=== PATIENT | female | born 1960 | race Caucasian/White ===

== ENCOUNTER → 2016-12-09 | Outpatient (CLI) | payer OTHER ==
[~2016-12-09] MED LIST: ANAS1TAB19 PO; ESCI1TAB6 PO; GADAVIST IV PRN; HEPARIN SOD 5000 UNIT/0.5 ML CARP ONE
--- NOTE | 2016-12-10 13:19 | MAMMOGRAPHY REPORT ---
BREAST MRI OF BOTH BREASTS : 12/09/2016 CLINICAL HISTORY: 56-year-old woman with a history of left breast cancer with recurrence in 2011. S he is status post bilateral mastectomy and silicone implant reconstruction. She recently presented with pain in the left upper outer quadrant for which a targeted ultrasound was performed on 11/29/19. Based on the outside ultrasound report, there was an area of possible scarring in the upper outer qu adrant, at the site of pain and palpable abnormality, for which MRI was recommended. COMPARISON: Comparison is made to exams dated: 03/30/2015 breast MRI and 04/16/2016 breast MRI - [facility]. TECHNIQUE: Using a 1.5 Aneta magnet and dedicated breast coil, multisequence axial images were obtai veena through the breasts. After uneventful IV administration of 5.8 mL of Gadavist, dynamic multipha se contrast-enhanced axial images, and sagittal postcontrast were obtained. Temporal subtraction ax ial images and 3-D MIP images are provided. Additional axial T2 STIR, axial T2 fat saturation, sagi ttal T2 STIR and sagittal T2 fat saturation images were obtained to evaluate implant integrity. FINDINGS: Right breast: There is evidence of prior right mastectomy with subpectoral silicone implant reconst ruction. The implant is intact. There is no significant background enhancement. No suspicious enh ancing, non-mass enhancement or focal skin thickening is identified. No suspicious right axillary, subpectoral or internal mammary lymphadenopathy. Left breast: There is evidence of prior left mastectomy with subpectoral silicone implant reconstruc tion. The implant is intact. There is no significant background enhancement. A palpable marker was placed on the skin of the upper outer posterior left breast, denoting the area of concern pointed o ut by the patient. No suspicious enhancing, non-mass enhancement or focal skin thickening is identif ied, with particular attention to the palpable area. No definite MRI abnormality is seen to correlat e with the sonographic finding of possible scar tissue. There are more foci of susceptibility artifa ct concentrated in the left upper outer quadrant as that is the area of second resection, performed in 2011. No suspicious right axillary, subpectoral or internal mammary lymphadenopathy. A small focus of enhancement is again seen in the sternum (Sagittal vibrant image 63/128). Given sli ght differences in measuring technique this does not appear significantly increased since the prior exam, currently 3.9 mm and previously 3.7 mm. However, continued attention at follow up is still rec ommended, as the prior exam was only 8 months ago. IMPRESSION: ACR BI-RADS CATEGORY 2: BENIGN 1. No new suspicious enhancing mass, non-mass enhancement or other suspicious abnormality in the up per outer quadrant of the left breast, to correlate with area of palpable concern pointed out by the patient. Clinical follow-up is recommended, as biopsy of a clinically suspicious mass should not b e precluded by negative imaging. 2. Stable MRI appearance of bilateral mastectomy with subpectoral silicone implant reconstruction. Both implants remain intact. Overall, there is no MRI evidence of malignancy bilaterally. 3. A tiny 3.9 mm focus of enhancement within the midsternum is again identified and does not appear significantly changed comparing to the prior exam dated 04/16/2016; also likely unchanged dating ba ck to 03/30/2015. Again, although this could represent a tiny metastatic focus, it may be incidenta l. Continued correlation with clinical symptoms and continued attention at follow-up is recommended . The patient will receive written notification of the results. Deirdre Crystal M.D. ay/:12/09/2016 22:14:11 Business Office Associate: assessment rn, [facility] letter sent: Normal 1/2 BI-RADS Code: ACR BI-RADS Category 2: Benign
== END | disposition home or self-care (01) ==
LOC: C.MRI 11:31
PROVIDERS: ATTEND Radiology Diagnostic Radiology
DX: C50.912 Malignant neoplasm of unspecified site of left female breast (principal); Z90.11 Acquired absence of right breast and nipple; Z90.12 Acquired absence of left breast and nipple; Z98.82 Breast implant status; R92.8 Other abnormal and inconclusive findings on diagnostic imaging of breast

== ENCOUNTER 2022-08-02 00:27 | Inpatient (IN) ==
[2022-08-02] MEDS ORDERED: ONDANSETRON INJ 2 MG/ML 2 ML VIAL IV STA ×2 (00:54→08:24)
[2022-08-02] MEDS ORDERED: SODIUM CHLORIDE 0.9% 1000ML 1,000 ML IV SCH ×2 (01:00→06:15)
[2022-08-02] MEDS: MoRPHine SULFATE 4 MG/ML 1 ML CARP\\VIAL IV PRN ×2 (01:02→05:45)
[2022-08-02 01:05] LABS: Basophils # (auto) 0.08 K/uL (0-0.2); Eosinophils # (auto) 0.13 K/uL (0-0.50); Eosinophils % (auto) 1.6 %; Hematocrit (blood only) 41.8 % (34.1-44.9); Hemoglobin 14.7 g/dl (12.0-16.0); Immature Granulocytes # (auto) 0.07 K/uL (0.00-0.02); Immature Granulocytes % (auto) 0.9 %; Lymphocytes # (auto) 2.74 K/uL (1.2-3.4); Lymphocytes % (auto) 34.7 %; Mean Corpuscular Hemoglobin 38.4 pg (25.0-34.0); Mean Corpuscular Hgb Conc 35.2 g/dL (32.0-36.0); Mean Corpuscular Volume 109.1 fL (80.0-100.0); Mean Platelet Volume 9.4 fL (9.4-12.3); Monocytes # (auto) 0.85 K/uL (0.24-0.82); Monocytes % (auto) 10.8 %; Neutrophils # (auto) 4.03 K/uL (1.4-6.5); Platelet Count 275 K/uL (130-400); RDW Coefficient of Variation 13.3 % (11.5-14.5); Red Blood Count 3.83 M/uL (3.93-5.22)
[2022-08-02 01:42] LABS: Albumin Globulin Ratio 1.5 (0.9-2); Albumin Level 4.7 gm/dl (3.4-5.0); BUN Creatinine Ratio 9.7 (10-20); Bilirubin,Total 0.7 mg/dl (0.2-1.0); Calcium 9.6 mg/dl (8.5-10.1); Creatinine Clr Calc Pharmacy 79.8 ml/min; Est GFR (African American) 105.5 ml/min; Globulin 3.2 gm/dl (2.5-4.0); Potassium 4.6 mmol/L (3.5-5.1); Total Protein 7.9 gm/dl (6.0-8.3)
[2022-08-02] MEDS ORDERED: OPTIRAY 320 500ml IV ONE (02:28)
[2022-08-02 02:40] LABS: Appearance Urine Cloudy (Clear); Bacteria Urine Automated 4+ (Negative); Bilirubin Urine Negative (Negative); Blood Urine Trace (Negative); Cast Urine Automated 0 /lpf (0-5); Color Urine Yellow; Glucose Urine UA Negative (Negative); Ketones Urine Negative (Negative); Leukocyte Esterase Urine 3+ (Negative); Nitrite Urine Positive (Negative); Protein Urine Trace (Negative); Urobilinogen Urine Negative (Negative); WBC Urine Automated >30 /hpf (0-5)
[2022-08-02] MEDS ORDERED: SULFAMETHOXAZOLE/TRIMETHOPRIM DS 800/160MG TAB PO ONE (06:06)
[2022-08-02] MEDS ORDERED: cefTRIAXone SODIUM 1,000 MG in DEXTROSE 5% AD-VAN 50 ML IV STA (06:24)
[2022-08-02] MEDS ORDERED: ACETAMINOPHEN 1,000 MG/100 ML VIAL IV STA (06:26)
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
[2022-08-02] MEDS ORDERED: MULTI-VITAMIN INFUSION 10 ML, THIAMINE HCL 100 MG, FOLIC ACID 1 MG in SODIUM CHLORIDE 0... IV ONE (08:15)
[2022-08-02] MEDS ORDERED: LORazepam 1 MG TAB PO STA (08:15)
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
[2022-08-02] MEDS: LIDOCAINE 5% 1 PATCH TD SCH (09:12)
[2022-08-02] MEDS ORDERED: GABAPENTIN 1200MG ALCOHOL WITHDRAWAL LOAD PO STA (09:31)
[2022-08-02] MEDS ORDERED: ONDANSETRON INJ 2 MG/ML 2 ML VIAL IV PRN (09:31)
[2022-08-02] MEDS ORDERED: oxyCODONE HCL IR 5 MG TAB (IMMEDIATE RELEASE) PO PRN (09:31)
[2022-08-02] MEDS ORDERED: HYDROmorphone INJ 0.5 MG/0.5 ML SYR IV PRN (09:31)
[2022-08-02] MEDS ORDERED: LORazepam 1 MG TAB PO PRN ×2 (09:40→19:29)
[2022-08-02] MEDS ORDERED: LEVOTHYROXINE SODIUM 25 MCG TABLET PO SCH (09:45)
[2022-08-02] MEDS ORDERED: GABAPENTIN 600 MG TAB PO ONE (09:45)
[2022-08-02] MEDS: PANTOprazole 40 MG TAB PO SCH (10:59)
[2022-08-02] MEDS: MAGNESIUM SULFATE / D5W 1 GM/100 ML BAG IV SCH ×2 (10:59→12:43)
[2022-08-02] MEDS: SODIUM CHLORIDE 0.9% 1000ML 1,000 ML IV SCH ×2 (10:59→21:12)
[2022-08-02 14:28] LABS: Amphetamines+Metham, Urine Neg (Neg); Barbiturates, Urine Neg (Neg); Benzodiazepine, Urine Neg (Neg); Cocaine, Urine Neg (Neg); MDMA (Ecstacy), Urine Neg (Neg); Methadone, Urine Neg (Neg); Opiate, Urine Pos (Neg); Phencyclidine, Urine Neg (Neg)
[2022-08-02] MEDS: GABAPENTIN 600 MG TAB PO SCH ×2 (15:26→20:06)
[2022-08-02] MEDS: CHOLECALCIFEROL 1,000 UNITS 25 MCG TAB PO SCH (20:07)
[2022-08-02] MEDS: ESCITALOPRAM OXALATE 10 MG TAB PO SCH (20:07)
[2022-08-02] MEDS: OLMESARTAN MEDOXOMIL 20 MG TAB PO SCH (20:07)
[2022-08-02] MEDS: THIAMINE HCL 200 MG in SODIUM CHLORIDE 0.9% 50 ML IV SCH (20:08)
[2022-08-02] MEDS: MELATONIN 3 MG TAB PO SCH (20:08)
[2022-08-02] MEDS ORDERED: THIAMINE HCL 200 MG in SYRINGE 9 ML IV SCH (21:00)
[2022-08-03] MEDS: GABAPENTIN 600 MG TAB PO SCH ×3 (05:12→20:03)
[2022-08-03] MEDS: LEVOTHYROXINE SODIUM 50 MCG TABLET PO SCH (05:13)
[2022-08-03 06:41] LABS: Basophils # (auto) 0.04 K/uL (0-0.2); Basophils % (auto) 0.8 %; Eosinophils # (auto) 0.06 K/uL (0-0.50); Eosinophils % (auto) 1.2 %; Hematocrit (blood only) 35.2 % (34.1-44.9); Immature Granulocytes # (auto) 0.02 K/uL (0.00-0.02); Immature Granulocytes % (auto) 0.4 %; Lymphocytes # (auto) 1.22 K/uL (1.2-3.4); Lymphocytes % (auto) 23.8 %; Mean Corpuscular Hgb Conc 34.1 g/dL (32.0-36.0); Mean Corpuscular Volume 111.4 fL (80.0-100.0); Mean Platelet Volume 9.8 fL (9.4-12.3); Monocytes % (auto) 9.8 %; Neutrophils # (auto) 3.28 K/uL (1.4-6.5); Platelet Count 197 K/uL (130-400); RDW Coefficient of Variation 13.2 % (11.5-14.5); RDW Standard Deviation 54.9 fL (36.4-46.3); Red Blood Count 3.16 M/uL (3.93-5.22); White Blood Count 5.12 K/ul (4.8-10.8)
[2022-08-03 07:10] LABS: Albumin Globulin Ratio 1.5 (0.9-2); Albumin Level 3.7 gm/dl (3.4-5.0); BUN Creatinine Ratio 5.5 (10-20); Bilirubin,Total 0.9 mg/dl (0.2-1.0); Calcium 7.8 mg/dl (8.5-10.1); Est GFR (African American) 103.8 ml/min; Est GFR (Non-African American) 89.5 ml/min; Globulin 2.4 gm/dl (2.5-4.0); Macrocytosis Present; Magnesium 1.8 mg/dl (1.7-2.4); Potassium 3.9 mmol/L (3.5-5.1); Total Protein 6.1 gm/dl (6.0-8.3)
[2022-08-03 07:28] LABS: Vitamin D, 25 Hydrox 52.5 ng/ml (30-100)
[2022-08-03] MEDS: ceFAZolin 1000MG 1,000 MG/7.5 ML SYR IV SCH ×2 (08:34→20:08)
[2022-08-03] MEDS: FOLIC ACID 1 MG TAB PO SCH (08:35)
[2022-08-03] MEDS: LIDOCAINE 5% 1 PATCH TD SCH (08:35)
[2022-08-03] MEDS: PANTOprazole 40 MG TAB PO SCH (08:36)
[2022-08-03] MEDS: SODIUM CHLORIDE 0.9% 1000ML 1,000 ML IV SCH ×2 (08:39→17:49)
[2022-08-03] MEDS: THIAMINE HCL 200 MG in SODIUM CHLORIDE 0.9% 50 ML IV SCH ×2 (08:40→20:08)
--- NOTE | 2022-08-03 09:59 | Orthopedic Progress Note ---
Date of Service August 03, 2022 Assessment & Plan (1) Lumbar burst fracture: Plan: At this time she is able to continue to activity as tolerated to wear the brace when out of bed. To lift no more than a cup of coffee. We will plan for her to undergo a bone health evaluation with our nurse practitioner when she undergoes follow-up. Admission and Anticipated Discharge Date Admission Date: August 02, 2022 Subjective Back pain well controlled denies any leg pain. She is tolerating the brace. Physical Exam Physical Exam: On exam she does appear comfortable. Is good strength testing lower extremities. Results & Data ([facility]) Vital Signs (Past 12 Hours) Vital Signs Temp Pulse Pulse Resp BP Pulse Ox Pulse Ox 08/03/22 09:31 95 08/03/22 07:29 108 H 08/03/22 07:13 37.6 C H 110 H 18 162/97 H 91 08/03/22 02:39 37.1 C 118 H 18 138/94 96 08/02/22 23:18 117 H 08/02/22 23:04 36.9 C 119 H 20 149/92 H 94 O2 Del Method O2 Del Method 08/03/22 09:31 Room Air 08/03/22 07:29 08/03/22 07:13 Room Air 08/03/22 02:39 Room Air 08/02/22 23:18 08/02/22 23:04 Room Air
[2022-08-03] MEDS ORDERED: LORazepam 1 MG TAB PO PRN ×3 (11:08)
[2022-08-03] MEDS ORDERED: Ativan PO Alcohol Withdrawal--Active Protocol PO PRN (11:08)
[2022-08-03] MEDS: ACETAMINOPHEN 500 MG TAB PO PRN (12:00)
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
[2022-08-03] MEDS: METOPROLOL TARTRATE 25 MG TAB PO SCH ×2 (14:30→20:04)
[2022-08-03] MEDS: MELATONIN 3 MG TAB PO SCH (20:04)
[2022-08-03] MEDS: CHOLECALCIFEROL 1,000 UNITS 25 MCG TAB PO SCH (20:04)
[2022-08-03] MEDS: ESCITALOPRAM OXALATE 10 MG TAB PO SCH (20:04)
[2022-08-03] MEDS: OLMESARTAN MEDOXOMIL 20 MG TAB PO SCH (20:04)
[2022-08-03] MEDS ORDERED: hydrOXYzine HCl 25 MG TAB PO STA (22:44)
[2022-08-04] MEDS: ACETAMINOPHEN 500 MG TAB PO PRN ×4 (01:35→21:11)
[2022-08-04] MEDS: SODIUM CHLORIDE 0.9% 1000ML 1,000 ML IV SCH ×2 (04:46→13:19)
[2022-08-04] MEDS: LEVOTHYROXINE SODIUM 50 MCG TABLET PO SCH (05:48)
[2022-08-04 08:11] LABS: BUN Creatinine Ratio 7.7 (10-20); Calcium 7.8 mg/dl (8.5-10.1); Creatinine Clr Calc Pharmacy 90.8 ml/min; Est GFR (African American) 111.8 ml/min; Est GFR (Non-African American) 96.5 ml/min; Potassium 3.4 mmol/L (3.5-5.1)
[2022-08-04] MEDS: METOPROLOL TARTRATE 25 MG TAB PO SCH (08:37)
[2022-08-04] MEDS: LIDOCAINE 5% 1 PATCH TD SCH (08:37)
[2022-08-04] MEDS: GABAPENTIN 600 MG TAB PO SCH ×2 (08:37→20:23)
[2022-08-04] MEDS: FOLIC ACID 1 MG TAB PO SCH (08:37)
[2022-08-04] MEDS: CYANOCOBALAMIN (B-12) 500 MCG TABLET PO SCH (08:37)
[2022-08-04] MEDS: PANTOprazole 40 MG TAB PO SCH (08:37)
[2022-08-04] MEDS: ceFAZolin 1000MG 1,000 MG/7.5 ML SYR IV SCH (08:41)
[2022-08-04] MEDS: THIAMINE HCL 200 MG in SODIUM CHLORIDE 0.9% 50 ML IV SCH ×2 (08:41→20:24)
[2022-08-04] MEDS: cefTRIAXone SODIUM 2,000 MG in DEXTROSE 5% 50 ML IV SCH (09:33)
[2022-08-04] MEDS: POTASSIUM CHLORIDE CRTAB 20 MEQ TABCR PO SCH ×3 (09:34→20:26)
[2022-08-04 13:58] LABS: Codeine Urine NEGATIVE ng/mL (<50); Hydrocodone Urine NEGATIVE ng/mL (<50); Hydromor Urine NEGATIVE ng/mL (<50); Morphine Urine 2280 ng/mL (<50); Norhydrocodone Conf Ur NEGATIVE ng/mL (<50); Noroxycodone Urine NEGATIVE ng/mL (<50); Oxycodone Urine NEGATIVE ng/mL (<50); Oxymorph Urine NEGATIVE ng/mL (<50)
[2022-08-04] MEDS: CHOLECALCIFEROL 1,000 UNITS 25 MCG TAB PO SCH (20:23)
[2022-08-04] MEDS: MELATONIN 3 MG TAB PO SCH (20:23)
[2022-08-04] MEDS: ESCITALOPRAM OXALATE 10 MG TAB PO SCH (20:23)
[2022-08-04] MEDS: OLMESARTAN MEDOXOMIL 20 MG TAB PO SCH (20:24)
[2022-08-04] MEDS: METOPROLOL TARTRATE 50 MG TAB PO SCH (20:24)
[2022-08-04] MEDS ORDERED: LORazepam 0.5 MG TAB PO SCH (21:00)
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
[2022-08-05] MEDS: ACETAMINOPHEN 500 MG TAB PO PRN ×2 (03:11→10:39)
[2022-08-05] MEDS: LEVOTHYROXINE SODIUM 50 MCG TABLET PO SCH (05:48)
[2022-08-05] MEDS: FOLIC ACID 1 MG TAB PO SCH (08:22)
[2022-08-05] MEDS: METOPROLOL TARTRATE 50 MG TAB PO SCH (08:22)
[2022-08-05] MEDS: LIDOCAINE 5% 1 PATCH TD SCH (08:23)
[2022-08-05] MEDS: CYANOCOBALAMIN (B-12) 500 MCG TABLET PO SCH (08:23)
[2022-08-05] MEDS: PANTOprazole 40 MG TAB PO SCH (08:23)
[2022-08-05] MEDS: THIAMINE HCL 200 MG in SODIUM CHLORIDE 0.9% 50 ML IV SCH (08:27)
[2022-08-05] MEDS: POTASSIUM CHLORIDE CRTAB 20 MEQ TABCR PO SCH (08:28)
[2022-08-05] MEDS: cefTRIAXone SODIUM 2,000 MG in DEXTROSE 5% 50 ML IV SCH (08:46)
[2022-08-05 09:14] LABS: BUN Creatinine Ratio 5.7 (10-20); Calcium 8.5 mg/dl (8.5-10.1); Creatinine Clr Calc Pharmacy 84.4 ml/min; Est GFR (African American) 109.1 ml/min; Est GFR (Non-African American) 94.2 ml/min; Potassium 3.9 mmol/L (3.5-5.1)
--- NOTE | 2022-08-05 15:11 | XCELERA ---
[id number]
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
[2022-08-05] MEDS ORDERED: GABAPENTIN 600 MG TAB PO SCH (20:30)
--- NOTE | 2022-08-10 18:21 | Communication Note ---
Date of Service: August 10, 2022 I spoke with Ms Mckinney by phone earlier this afternoon. She reported she was feeling good, remains abstinent from alcohol, and completed her course of IV rocephin for her UTI. She mentioned she has some lingering urinary urgency from the recent UTI, but again states she "really is doing well." During this phone conversation I reported to her that her CT chest report showed a subtle right anterior 5th rib fracture. I explained that the initial STAT rad report from the CT chest failed to mention the rib fracture, but that the reading from [facility]iology listed the rib fracture in the assessment. She denies any right anterior chest wall pain at the current time. I stated that there was nothing specific to do for the rib fracture - it would simply heal over time. She mentioned that she continues with tylenol prn for her back pain from the L1 burst fracture. I recommended that if she continues with urinary urgency that she should have a f/u urinalysis and/or urine culture for test of cure. Recommended she do this via Dr Shaikh's office on Friday, sooner if needed. I noted in the medical record that she has f/u with her PCP's office on 08/[address] Eden. Ash Li MD
== END 2022-08-05 17:12 | disposition home or self-care (01) | DRG 923 ==
LOC: ED 00:27 → 2W 07:28

== ENCOUNTER 2025-04-13 13:37 | Inpatient (IN) ==
--- NOTE | 2025-04-07 15:21 | Anesthesiology Consultation ---
Date of Service April 07, 2025 Assessment & Plan (1) Encounter for pre-operative examination: Chart Review Chart Review: project manager process development initiated History Surgery Operation Date: 04/13/25 08:30 Proposed Procedures p Esophagogastroduodenoscopy Dr Méndez - Vinayak Méndez, DO Height/Weight Height: 5 ft 4 in Weight: 61.235 kg Allergies Allergy/AdvReac Type Severity Reaction Status Date / Time erythromycin base Allergy Intermediate LEGS RED Verified 04/07/25 10:47 AND SWOLLEN Penicillins Allergy Intermediate LEGS RED Verified 04/07/25 10:47 AND SWOLLEN vancomycin Allergy Intermediate red hot Verified 04/07/25 10:47 flush Medications Home Medications Medication Instructions Recorded Confirmed Last Taken pantoprazole 40 mg tablet,delayed 40 mg PO HS 10/01/24 04/07/25 01/16/25 release levothyroxine 75 mcg tablet 75 mcg PO DAILYBB 01/17/25 04/07/25 01/17/25 rosuvastatin 20 mg tablet 20 mg PO HS 01/17/25 04/07/25 01/16/25 thiamine HCl (vitamin B1) 100 mg 100 mg PO HS 01/17/25 04/07/25 01/16/25 tablet escitalopram oxalate 10 mg tablet 10 mg PO HS #90 tabs 04/06/25 04/07/25 Unknown Past Medical History Medical History Anxiety controlled w/ lexapro History of colon polyps Hypothyroidism Multiple thyroid nodules hx GERD (gastroesophageal reflux disease) Esophageal dysphagia recent food impaction of esophagus, EGD done 01/17/25, [facility] Cirrhosis of liver Hyperlipidemia Hx of gastritis History of anemia Alcohol withdrawal hx Breast implant status bilateral Lumbar burst fracture h/o History of esophageal dilatation Hiatal hernia Esophageal stenosis Elevated liver enzymes History of vitamin D deficiency History of left breast cancer diagnosed 1994, reocurred 2011--sx/chemo and radiation History of COVID-19 10/2019--chills, lethargic, dry cough--no issues now Hypertension Past Family History Family History Father Anxiety Hypertension Mother Glioblastoma Other No family history of adverse response to anesthesia Denies family history of Ovarian cancer Breast cancer Colorectal cancer Past Surgical History Surgical History Hx of total hysterectomy History of esophagogastroduodenoscopy (EGD) 12/2024 [place] History of colonoscopy with polypectomy History of left breast biopsy malignant History of bilateral mastectomy 1994, repeat 2011 History of dental surgery dental implants History of wisdom tooth extraction Hx of LASIK History of tonsillectomy and adenoidectomy H/O: x1 Social History Smoking Status: Never smoker Do You Dip or Chew Tobacco: No Hx Alcohol Use: Yes Alcohol type: wine alcohol intake frequency: a few times a week Hx Substance Use: No substance use type: does not use Testing Echocardiogram Date: 03/09/23 EF: 65-70 LV Function: normal RWMA: + none mild TR no significant change Other Testing Chest CT (04/16/24) IMPRESSION: 1. Trace right pleural effusion. 2. No lymphadenopathy within the chest. 3. Moderate to large hiatus hernia again noted. 4. Cirrhotic liver demonstrating fatty change and a small amount of upper abdominal ascites. 5. A 7 mm hypodense lesion within the left hepatic lobe. This is technically too small to characterize. This is not clearly identified on the prior studies. Therefore, consider follow-up nonemergent liver MRI for further evaluation. 6. Additional findings as described above.
[2025-04-13] MEDS: SODIUM CHLORIDE 0.9% 500 ML IV SCH (13:49)
[2025-04-13] MEDS ORDERED: SIMETHICONE (ENDO) IR PRN (14:14)
--- NOTE | 2025-04-13 14:15 | History & Physical Report ---
Date of Service April 13, 2025 Assessment & Plan (1) Esophageal dysphagia: Plan: Proceed with EGD History of Present Illness Chief Complaint: Dysphagia Primary Care Provider: Reece Shaikh MD 64 yo CF who presents for EGD secondary to dysphagia. Allergies Allergy/AdvReac Type Severity Reaction Status Date / Time erythromycin base Allergy Intermediate LEGS RED Verified 04/13/25 13:42 AND SWOLLEN Penicillins Allergy Intermediate LEGS RED Verified 04/13/25 13:42 AND SWOLLEN vancomycin Allergy Intermediate red hot Verified 04/13/25 13:42 flush Home Medications Medication Instructions Recorded Confirmed Type pantoprazole 40 mg tablet,delayed 40 mg PO HS 10/01/24 04/13/25 History release levothyroxine 75 mcg tablet 75 mcg PO DAILYBB 01/17/25 04/13/25 History rosuvastatin 20 mg tablet 20 mg PO HS 01/17/25 04/13/25 History thiamine HCl (vitamin B1) 100 mg 100 mg PO HS 01/17/25 04/13/25 History tablet escitalopram oxalate 10 mg tablet 10 mg PO HS #90 tabs 04/06/25 04/13/25 Rx Past Med/Surg History Problem List Encounter for pre-operative examination Food impaction of esophagus (Acute) Hyperlipidemia Cirrhosis of liver Bladder wall thickening Hepatic steatosis Anemia (Acute) Abnormal ECG (Acute) Elevated liver enzymes (Acute) Postmenopausal estrogen deficiency Hx of total hysterectomy Abnormal echocardiogram Alcohol dependence Esophageal dysphagia Elevated liver enzymes GERD with esophagitis Multiple thyroid nodules Hypothyroidism History of colon polyps Insomnia (Chronic) Depression with anxiety pt reports no longer has depression, anxiety controlled with Lexapro Total hysterectomy with removal of both tubes and ovaries (Acute 04/18/12) Medical History Anxiety controlled w/ lexapro History of colon polyps Hypothyroidism Multiple thyroid nodules hx GERD (gastroesophageal reflux disease) Esophageal dysphagia recent food impaction of esophagus, EGD done 01/17/25, [facility] Cirrhosis of liver Hyperlipidemia Hx of gastritis History of anemia Alcohol withdrawal hx Breast implant status bilateral Lumbar burst fracture h/o History of esophageal dilatation Hiatal hernia Esophageal stenosis Elevated liver enzymes History of vitamin D deficiency History of left breast cancer diagnosed 1994, reocurred 2011--sx/chemo and radiation History of COVID-19 10/2019--chills, lethargic, dry cough--no issues now Hypertension Surgical History Hx of total hysterectomy History of esophagogastroduodenoscopy (EGD) 12/2024 [place] History of colonoscopy with polypectomy History of left breast biopsy malignant History of bilateral mastectomy 1994, repeat 2011 History of dental surgery dental implants History of wisdom tooth extraction Hx of LASIK History of tonsillectomy and adenoidectomy H/O: x1 Family History Father Anxiety Hypertension Mother Glioblastoma Other No family history of adverse response to anesthesia Denies family history of Ovarian cancer Breast cancer Colorectal cancer Social History Smoking Status: Never smoker Second Hand Exposure: No; Do You Dip or Chew Tobacco: No; Tobacco Cessation Education Requested by Patient: No Hx Alcohol Use: Yes Alcohol type: wine Alcohol Intake Frequency: 4 or More x per/Week Alcohol Intake Frequency Comment: Currently 2-4 alcoholic beverages about 4 times per week Hx Substance Use: No Preferred Language: Kiswahili Communication Ability: Effective Hearing Ability: Normal Applications Systems Engineer Required: No Beliefs That Will Affect Care: None marital status: Current Living Situation: Spouse Current Living Situation Comment: home with spuse. current occupational status: unemployed current occupation: former pharmaceutical rep How many Children do You have: 3 Other Information That Helps Us Care for You: No Feels Safe at Home: Yes Safety Concerns: Feels Safe At This Time Diet: regular caffeine: No Dental Care, Regularly: Yes Physical Activity Frequency: 3-4 Times per Week Seatbelt Use: always Sunscreen Use: Yes Assistive Devices: None Physical Exam Constitutional: WD/WN, vitals as above Respiratory: normal respiratory effort, lungs clear to auscultation Cardiovascular: RRR, no murmur, no edema Gastrointestinal (Abdomen): normal bowel sounds, soft, nontender, no hepatosplenomegaly Results & Data Vital Signs (Past 12 Hours) Vital Signs Temp Pulse Resp BP Pulse Ox O2 Del Method 04/13/25 13:44 36.6 C 87 16 167/108 H 99 Room Air Coding Level of Care Code None Diagnoses Esophageal dysphagia R13.19
--- NOTE | 2025-04-13 14:57 | GI REPORT ---
[facility] Patient: MARSHALL SORIANO : 1960 Sex at : Female Age: 64 Years Procedure: Upper GI endoscopy Date: 04/13/2025 Attending Physician: DO Janine Serrato MD: Reece Shaikh Indications: - Dysphagia Medications: - Monitored Anesthesia Care Complications: - No immediate complications. Estimated Blood Loss: - Estimated blood loss: None. Procedure: - Prior to the procedure, a History and Physical was performed, and patient medications and allergies were reviewed. The patient's tolerance of previous anesthesia was also reviewed. The risks and benefits of the procedure and the sedation options and risks were discussed with the patient. All questions were answered, and informed consent was obtained. Prior Anticoagulants: The patient has taken no anticoagulant or antiplatelet agents. ASA Grade Assessment: III - A patient with severe systemic disease. After reviewing the risks and benefits, the patient was deemed in satisfactory condition to undergo the procedure. - The egd scope was introduced through the mouth and advanced to the third part of the duodenum. - The upper GI endoscopy was accomplished without difficulty. - The patient tolerated the procedure well. Findings: - Multiple benign-appearing, intrinsic moderate stenoses were found 24 cm from the incisors, and 38 cm from the incisors. The narrowest stenosis measured 13 mm (inner diameter) x 2 cm (in length) in the proximal esophagus. The stenoses were traversed. A guidewire was placed and the scope was withdrawn. Dilation was performed with a Savary dilator with mild resistance at 51 Fr. The dilation site was examined following endoscope reinsertion and showed moderate improvement in luminal narrowing at the proximal stenosis, however, a 1 cm perforation was noted at 38 cm from the incisors at the distal stenosis. An OTS padlock clip was used to close the perforation. This site was examined with an ultraslim endoscope and was noted to be repaired successfully. - A medium-sized hiatal hernia was present. - Localized mild inflammation characterized by erythema was found in the gastric antrum. - The examined duodenum was normal. Impression: - Benign-appearing esophageal stenoses. Dilated. - Medium-sized hiatal hernia. - Gastritis, characterized by erythema. - Normal examined duodenum. - No specimens collected. Recommendation: - Admit the patient to hospital [facility] for ongoing care. - NPO. - Continue present medications. - Return to primary care physician as previously scheduled. - Patient has a contact number available for emergencies. The signs and symptoms of potential delayed complications were discussed with the patient. Return to normal activities tomorrow. Written discharge instructions were provided to the patient. Procedure Code(s): - 95075, Esophagogastroduodenoscopy, flexible, transoral; with insertion of guide wire followed by passage of dilator(s) through esophagus over guide wire Diagnosis Code(s): - R13.10, Dysphagia, unspecified - K22.2, Esophageal obstruction - K44.9, Diaphragmatic hernia without obstruction or gangrene - K29.70, Gastritis, unspecified, without bleeding CPT(R) - 2023 copyright [employer]. All Rights Reserved. The CPT codes, CCI edits and ICD codes generated are intended as suggestions and were generated based on input data. These codes are preliminary and upon house shorer review may be revised to meet current compliance and payer requirements. The provider is responsible for the final determination of appropriate codes, and modifiers. Dr. Vinayak Méndez, DO This document has been electronically signed. Note Initiated:04/13/2025 Note Completed:04/13/2025 2:56 PM \\[email or web address]\[id number]
--- NOTE | 2025-04-13 15:14 | Anesthesiology Progress Note ---
Date of Service April 13, 2025 Anesthesia Post Procedure Vital Signs Vital Signs: Temp Pulse Resp BP Pulse Ox O2 Del Method 04/13/25 15:08 89 17 155/116 H 95 Room Air 04/13/25 14:53 104 H 16 165/105 H 94 Room Air 04/13/25 13:44 36.6 C 87 16 167/108 H 99 Room Air Pain Intensity Medial Throat: Pain Intensity: 6 Transfer of Care Handoff Completed per policy Notes Mental Status: alert / awake / arousable Patient Amnestic to Procedure: Yes Nausea / Vomiting: adequately controlled Pain: adequately controlled Airway Patency, RR, SpO2: stable & adequate BP & HR: stable & adequate Hydration State: stable & adequate Anesthetic Complications: no major complications apparent
[2025-04-13] MEDS: LIDOCAINE 2% 2 ML VIAL/AMP(20MG/ML) INFIL ONE (16:55)
[2025-04-13] MEDS: ESMOLOL HCL INJ 10 MG/ML 10ML VIAL IV ONE (16:55)
[2025-04-13] MEDS: MIDAZOLAM HCL 1 MG/ML 2ML VIAL ONE (16:55)
[2025-04-13] MEDS: PROPOFOL IV EMULSION 10 MG/ML 20 ML VIAL IV ONE ×2 (16:55)
[2025-04-13] MEDS: LACTATED RINGER'S 1,000 ML IV SCH (17:06)
[2025-04-13] MEDS: ACETAMINOPHEN 1,000 MG/100 ML VIAL IV PRN (17:11)
--- NOTE | 2025-04-13 17:13 | History & Physical Report ---
Date of Service April 13, 2025 Assessment & Plan (1) Esophageal perforation: (2) Hyperlipidemia: (3) Depression with anxiety: (4) Hypothyroidism: Plan The patient is a 64-year-old female with a past medical history including food impaction of esophagus, hyperlipidemia, liver cirrhosis, hepatic steatosis, anemia, abnormal liver enzymes, esophageal dysphagia, esophageal strictures, GERD with esophagitis, hypothyroidism and depression with anxiety. The patient was admitted to [facility] service to the PCU for monitoring overnight, she will undergo a CT with Gastrografin tomorrow, and if there is leakage, the patient will need to be transferred to a cardiothoracic center. Esophageal perforation- NPO Complication of EGD as noted above Patient be admitted to the PCU for monitoring overnight Will have a CT of the of the abdomen with Gastrografin in the a.m. tomorrow, and if leak is demonstrated, will be transferred to a center where there is a cardiothoracic surgeon Pantoprazole 40 mg IV twice daily Zofran 4 mg IV every 6 hours as needed LR at 80 mL/h Hypothyroidism-hold levothyroxine Hyperlipidemia-hold rosuvastatin Depression anxiety-hold escitalopram Admission and Anticipated Discharge Date Admission Date: April 13, 2025 History of Present Illness Chief Complaint: The patient is referred to the [facility] service for admission by Dr. Méndez who was undergoing an EGD earlier today, has had successful treatment of the for stricture, with second stricture complication of perfor ation, the patient was referred for evaluation for admission Primary Care Provider: Reece Shaikh MD The patient is a 64-year-old female with a past medical history including food impaction of esophagus, hyperlipidemia, liver cirrhosis, hepatic steatosis, anemia, abnormal liver enzymes, esophageal dysphagia, esophageal strictures, GERD with esophagitis, hypothyroidism and depression with anxiety. The patient was admitted to [facility] service to the PCU for monitoring overnight, she will undergo a CT with Gastrografin tomorrow, and if there is leakage, the patient will need to be transferred to a cardiothoracic center. Allergies Allergy/AdvReac Type Severity Reaction Status Date / Time erythromycin base Allergy Intermediate LEGS RED Verified 04/13/25 13:42 AND SWOLLEN Penicillins Allergy Intermediate LEGS RED Verified 04/13/25 13:42 AND SWOLLEN vancomycin Allergy Intermediate red hot Verified 04/13/25 13:42 flush Home Medications Medication Instructions Recorded Confirmed Type pantoprazole 40 mg tablet,delayed 40 mg PO HS 10/01/24 04/13/25 History release levothyroxine 75 mcg tablet 75 mcg PO DAILYBB 01/17/25 04/13/25 History rosuvastatin 20 mg tablet 20 mg PO HS 01/17/25 04/13/25 History thiamine HCl (vitamin B1) 100 mg 100 mg PO HS 01/17/25 04/13/25 History tablet escitalopram oxalate 10 mg tablet 10 mg PO HS #90 tabs 04/06/25 04/13/25 Rx Past Med/Surg History Problem List Esophageal perforation Encounter for pre-operative examination Food impaction of esophagus (Acute) Hyperlipidemia Cirrhosis of liver Bladder wall thickening Hepatic steatosis Anemia (Acute) Abnormal ECG (Acute) Elevated liver enzymes (Acute) Postmenopausal estrogen deficiency Hx of total hysterectomy Abnormal echocardiogram Alcohol dependence Esophageal dysphagia Elevated liver enzymes GERD with esophagitis Multiple thyroid nodules Hypothyroidism History of colon polyps Insomnia (Chronic) Depression with anxiety pt reports no longer has depression, anxiety controlled with Lexapro Total hysterectomy with removal of both tubes and ovaries (Acute 04/18/12) Medical History Anxiety controlled w/ lexapro History of colon polyps Hypothyroidism Multiple thyroid nodules hx GERD (gastroesophageal reflux disease) Esophageal dysphagia recent food impaction of esophagus, EGD done 01/17/25, [facility] Cirrhosis of liver Hyperlipidemia Hx of gastritis History of anemia Alcohol withdrawal hx Breast implant status bilateral Lumbar burst fracture h/o History of esophageal dilatation Hiatal hernia Esophageal stenosis Elevated liver enzymes History of vitamin D deficiency History of left breast cancer diagnosed 1994, reocurred 2011--sx/chemo and radiation History of COVID-19 10/2019--chills, lethargic, dry cough--no issues now Hypertension Surgical History Hx of total hysterectomy History of esophagogastroduodenoscopy (EGD) 12/2024 [place] History of colonoscopy with polypectomy History of left breast biopsy malignant History of bilateral mastectomy 1994, repeat 2011 History of dental surgery dental implants History of wisdom tooth extraction Hx of LASIK History of tonsillectomy and adenoidectomy H/O: x1 Family History Father Anxiety Hypertension Mother Glioblastoma Other No family history of adverse response to anesthesia Denies family history of Ovarian cancer Breast cancer Colorectal cancer Social History Smoking Status: Never smoker Second Hand Exposure: No; Do You Dip or Chew Tobacco: No; Tobacco Cessation Education Requested by Patient: No Hx Alcohol Use: Yes Alcohol type: wine Alcohol Intake Frequency: 4 or More x per/Week Alcohol Intake Frequency Comment: Currently 2-4 alcoholic beverages about 4 times per week Hx Substance Use: No Preferred Language: Greek Communication Ability: Effective Hearing Ability: Normal Adhesive Bonding Machine Operator Required: No Beliefs That Will Affect Care: None marital status: Current Living Situation: Spouse Current Living Situation Comment: home with spuse. current occupational status: unemployed current occupation: former pharmaceutical rep How many Children do You have: 3 Other Information That Helps Us Care for You: No Feels Safe at Home: Yes Safety Concerns: Feels Safe At This Time Diet: regular caffeine: No Dental Care, Regularly: Yes Physical Activity Frequency: 3-4 Times per Week Seatbelt Use: always Sunscreen Use: Yes Assistive Devices: None Review of Systems Review of Systems: The patient denies palpitations, shortness of breath, dyspnea on exertion, cough, lower extremity swelling, fevers, chills, sweats, weight change, fatigue, nausea, vomiting, diarrhea , constipation, pelvic pain, blood in urine or stool, dysuria, urinary frequency or urgency, lightheadedness, dizziness, headache, memory loss, loss of consciousness, rash, abnormal bruising or bleeding, imbalance, focal or generalized weakness, numbness or tingling in arms or legs, generalized arthralgias or myalgias, back or neck pain, or night sweats. The review of systems is otherwise negative other than for that already noted above, and at least 10 systems have been reviewed. Physical Exam Physical Exam: The patient is awake, alert and oriented 3, well developed and well nourished, normocephalic and atraumatic, lying in bed and in no acute distress. HEENT--PERRL, EOMI, mucous membranes and oropharynx dry. Neck--supple. No JVD. No bruits. Thyroid normal, trachea midline, no adenopath y. Heart--normal S1 and S2. No murmurs, rubs or gallops. Lungs--clear bilaterally, no respiratory distress, no accessory muscle use. Abdomen--normal bowel sounds and soft. Mild epigastric pain. Nondistended, no hernias or masses, no organomegaly. Extremities--no cyanosis or clubbing. No edema. There are good distal pulses b/l. Dermatologic--normal skin turgor, normal color, no abnormal lymph nodes, no rash. Neurologic--cranial nerves II through XII grossly intact. Rheumatologic--normal range of motion. Psychiatric--normal affect. Results & Data Results & Data Vital Signs (Past 12 Hours) Vital Signs Temp Pulse Resp BP Pulse Ox O2 Del Method 04/13/25 16:02 36.7 C 79 17 153/95 H 97 Room Air 04/13/25 15:38 82 17 122/95 96 Room Air 04/13/25 15:23 76 18 183/108 H 95 Room Air 04/13/25 15:08 89 17 155/116 H 95 Room Air 04/13/25 14:53 104 H 16 165/105 H 94 Room Air 04/13/25 13:44 36.6 C 87 16 167/108 H 99 Room Air Code Status & VTE Plan Code Status full code VTE Prophylaxis Plan VTE Prophylaxis will be ordered: No Reason for no VTE drug order: Treatment not indicated PG Care Time/CCT Total # of Minutes Spent Total Time Spent with Patient: Total time spent is greater than 50% in coordination of care (as documented) at patient's floor/unit and/or counseling patient: Coding Level of Care Code 99012 INT INP/OBS CARE 3/75MIN Diagnoses Esophageal perforation K22.3 Hyperlipidemia E78.5 Depression with anxiety F41.8 Hypothyroidism E03.9
--- NOTE | 2025-04-13 17:34 | Communication Note ---
Date of Service: April 13, 2025 Naina Mckinney was admitted to PCU following EGD with dilation of esophageal strictures x2. During her EGD she was noted to have an esophageal perforation following her dilation. This was repaired with the use of an Olympus OTS padlock clip. The area was evaluated following the clip closure and the perforation was closed successfully. She was kept NPO. I contacted Dr. Donnelly of the Hospitalist team and she was admitted to PCU. I checked on her at bedside, and she complains of some back pain. I contacted Radiology and decision was made to check a CT Chest with oral contrast tonight. Following a discussion with the pharmacy team, secondary to the patient's reported Penicillin allergy, she was started on broad spectrum antibiotics with Ceftriaxone 2g IV daily and Flagyl 500 mg IV TID. I will contact her this evening with the results of her CT scan and make further recommendations at that time. If she does have extravasation of oral contrast, I do believe she will need transferred to a tertiary center with CT Surgery capabilities.
[2025-04-13 17:48] LABS: Hematocrit (blood only) 44.3 % (37.0-47.0); Hemoglobin 15.4 g/dl (12.0-16.0); Immature Granulocytes # (auto) 0.03 K/uL (0.01-0.20); Immature Granulocytes % (auto) 0.4 %; Mean Corpuscular Hemoglobin 35.4 pg (25.0-34.0); Mean Corpuscular Volume 101.8 fL (80.0-100.0); Platelet Count 184 K/uL (130-400); RDW Standard Deviation 48.9 fL (36.4-46.3); Red Blood Count 4.35 M/uL (4.20-5.40); White Blood Count 8.20 K/ul (4.8-10.8)
[2025-04-13] MEDS: ONDANSETRON INJ 2 MG/ML 2 ML VIAL IV PRN (17:53)
[2025-04-13] MEDS: metroNIDAZOLE 500 MG/100 ML BAG IV SCH (18:03)
[2025-04-13 18:10] LABS: Alanine Aminotransferase 64.0 U/L (7-52); Albumin Globulin Ratio 1.5 (0.9-2); Alkaline Phosphatase 165.0 U/L (34-104); Anion Gap 10.0 (3-11); Bilirubin,Total 0.8 mg/dl (0.2-1.0); Blood Urea Nitrogen 7.0 mg/dl (6-23); Calcium 8.7 mg/dl (8.6-10.3); Carbon Dioxide 27.0 mmol/L (21-32); Chloride 105.0 mmol/L (98-107); Creatinine Clr Calc Pharmacy 78.9 ml/min; Globulin 2.8 gm/dl (2.5-4.0); Glucose 83.0 mg/dl (70-99(Fasting)); Magnesium 1.3 mg/dl (1.7-2.4); Potassium 3.8 mmol/L (3.5-5.1); Sodium 142.0 mmol/L (136-145); Total Protein 7.1 gm/dl (6.0-8.3)
[2025-04-13 18:14] LABS: INR 1.1 (0.9-1.1); Partial Thromboplastin Time 28 Seconds (21-31); Prothrombin Time 11.5 Seconds (9.0-12.0)
--- NOTE | 2025-04-13 18:15 | CT Scan Report ---
CT OF THE CHEST WITHOUT IV CONTRAST CLINICAL HISTORY: Esophageal perforation. COMPARISON STUDY: Chest CT April 16, 2024. CT DOSE: 325.45 mGy.cm TECHNIQUE: Axial images of the chest were obtained without IV contrast. Water soluble oral contrast was administered immediately prior to this study Images were reviewed in the axial, sagittal, and co ginger planes. IV contrast was not administered for this examination. Automated exposure control was utilized for the study. A dose lowering technique was utilized adhering to the principles of ALARA. FINDINGS: A moderate sized hiatal hernia is again noted. There is a small amount of pneumomediastinu m and a small left pleural effusion. There is no pneumothorax. Note is made of an endoscopic closure device within the distal esophagus, just proximal to the GE junction. Immediately superior to the jason sure device, there is a defect within the left lateral wall of the esophagus. A small amount of oral contrast extends through this defect consistent with an esophageal tear. No additional defects are id entified by CT. There is no pericardial effusion. Bilateral breast implants are incidentally noted. H epatic steatosis and cirrhosis are again noted with a recanalized paraumbilical vein. There is a gall stone within the gallbladder. IMPRESSION: 1. Tear within the left lateral wall of the distal esophagus, just proximal to the endoscopic closure device. Small amount of contrast extends through the defect. Associated pneumomediastinum and a smal l left pleural effusion. Findings discussed with Dr. Méndez at time of dictation. 2. Moderate sized hiatal hernia. 3. Hepatic steatosis and cirrhosis with recanalized paraumbilical vein. ACT 112: Negative or not required by law. Electronically signed by: Sandeep Lin M.D. 04/13/2025 6:13 PM
[2025-04-13] MEDS: cefTRIAXone SODIUM 2,000 MG/50 ML BAG IV SCH (18:25)
--- NOTE | 2025-04-13 18:57 | Discharge Summary ---
Discharge Summary Date of Service April 13, 2025 Principal Dx & Hospital Course #1 = Principal Diagnosis (1) Esophageal perforation: (2) Hyperlipidemia: (3) Depression with anxiety: (4) Hypothyroidism: Plan The patient is a 64-year-old female with a past medical history including food impaction of esophagus, hyperlipidemia, liver cirrhosis, hepatic steatosis, anemia, abnormal liver enzymes, esophageal dysphagia, esophageal strictures, GERD with esophagitis, hypothyroidism and depression with anxiety. The patient was admitted to [facility] service to the PCU for monitoring overnight, she will undergo a CT with Gastrografin tomorrow, and if there is leakage, the patient will need to be transferred to a cardiothoracic center. Esophageal perforation- NPO Complication of EGD as noted above Patient be admitted to the PCU for monitoring overnight Will have a CT of the of the abdomen with Gastrografin in the a.m. tomorrow, and if leak is demonstrated, will be transferred to a center where there is a car diothoracic surgeon Pantoprazole 40 mg IV twice daily Zofran 4 mg IV every 6 hours as needed LR at 80 mL/h Hypothyroidism-hold levothyroxine Hyperlipidemia-hold rosuvastatin Depression anxiety-hold escitalopram Admission HPI Per Admitting Provider The patient is a 64-year-old female with a past medical history including food impaction of esophagus, hyperlipidemia, liver cirrhosis, hepatic steatosis, anemia, abnormal liver enzymes, esophageal dysphagia, esophageal strictures, GERD with esophagitis, hypothyroidism and depression with anxiety. The patient was admitted to [facility] service to the PCU for monitoring overnight, she will undergo a CT with Gastrografin tomorrow, and if there is leakage, the patient will need to be transferred to a cardiothoracic center. Discharge Plan Discharge Items Patient Disposition: Transfer Acute Care Hospital Reason For Visit: ESOPHAGEAL PERFORATION Discharge Diagnosis: esophageal perforation. Activity: As commented below Non-emergency contact: Primary Care Provider Call non-emergency contact if: you have any medication questions Follow-up/Referrals: Reece Shaikh MD [Primary Care Provider] - Diet: Nothing by Mouth Addtl Attending Provider Instructions: Transfer to tertiary center Pending Studies at Discharge: No Stand-Alone Forms: My [facility] Skilled Items Patient informed of condition?: Yes DNR: No Discharge Level of Care: Other Communicable Disease: Yes Discharge Prognosis: Stable Lines: Peripheral IV Urinary Catheter: No Medications and DC Order Prescriptions: Continued escitalopram oxalate 10 mg tablet 10 mg PO HS Qty: 90 3RF pantoprazole 40 mg tablet,delayed release (DR/EC) 40 mg PO HS thiamine HCl (vitamin B1) 100 mg tablet 100 mg PO HS levothyroxine 75 mcg tablet 75 mcg PO DAILYBB rosuvastatin 20 mg tablet 20 mg PO HS Discharge Orders: Discharge Order (Routine); Ordered 04/13/25 Ordered By: Feng Eng Admission Data Admit Date/Time: 04/13/25 16:49 Attending Provider: Familia Melgoza Admit Provider: Familia Melgoza Primary Care Provider: Reece Shaikh Other Interventions: Discharge Summary Assessment (RN) Last Done: 04/13/25 15:23 Hospital Stay Data Procedures Performed Operation Date: 04/13/25 13:35 Actual Procedures p EGD Dilatation - Vinayak G. Case, DO Diagnostic Imagining Performed 04/13/25 17:20 CT chest diagnostic wo con Stat Pending Results Patient Have Any Pending Studies at Discharge: No Discharge Instructions Given to Patient (Per Discharging Provider) Transfer to tertiary center Coding Diagnoses Esophageal perforation K22.3 Hyperlipidemia E78.5 Depression with anxiety F41.8 Hypothyroidism E03.9
[2025-04-13 19:09] VITALS: TEMP 99
[2025-04-13] MEDS: MoRPHine SULFATE 2 MG/ML CARP IV STA ×3 (19:41→22:22)
[2025-04-13 20:53] VITALS: BP 131/91; PULSE 124; RESP 22; O2SAT 93
[2025-04-13] MEDS: LIDOCAINE 5% 1 PATCH TD STA (21:18)
[2025-04-13] MEDS: PANTOprazole 40 MG/10 ML SYR IV SCH (22:11)
--- NOTE | 2025-04-13 23:37 | XRay Report ---
Exam(s): XR CXR 1 VIEW EXAM: XR Chest, 1 View CLINICAL HISTORY: Reason for exam: left sided pain, perf esophagus earlier in day. TECHNIQUE: Frontal view of the chest. COMPARISON: Prior chest x-ray from March 08, 2023. FINDINGS: Lungs: Left lower lobe consolidation. Pleural space: Unremarkable. No pneumothorax. Heart: Unremarkable. No cardiomegaly. Mediastinum: Large hiatal hernia. Normal mediastinal contour. Bones/joints: Unremarkable. No acute fracture. IMPRESSION: There is a left lower lobe consolidation concerning for pneumonia. Recommend follow-up chest x-rays to resolution.. Communications: Verify Receipt Electronically signed by: Mariia Milton MD 04/13/25 23:37 PM
--- NOTE | 2025-04-13 23:49 | XRay Report ---
Exam(s): XR CXR 1 VIEW EXAM: XR Chest, 1 View CLINICAL HISTORY: Reason for exam: chest pain. TECHNIQUE: Frontal view of the chest. COMPARISON: Prior chest x-ray from April 13, 2025 at 9:[address] scan of the chest from April 13, 2025 at 5:40 PM. FINDINGS: Lungs: There is a lower lobe consolidation. Pleural space: Tiny left pleural effusion. No pneumothorax. Heart: Unremarkable. No cardiomegaly. Mediastinum: There is a large hiatal hernia. There is a metallic foreign body overlying the cardiac silhouette. Normal mediastinal contour. Bones/joints: Unremarkable. No acute fracture. IMPRESSION: Unchanged left lower lobe consolidation with tiny pleural effusion. Electronically signed by: Mariia Milton MD 04/13/25 23:48 PM
[2025-04-14] MEDS ORDERED: REMOVE LIDODERM PATCH SCH (09:00)
== END 2025-04-13 22:30 | disposition short-term general hospital (02) | DRG 393 ==
LOC: ENDO 13:37 → 2S 16:49